=== PATIENT | female | born 1940 | race Hispanic/Latino ===

== ENCOUNTER → 2017-09-09 | Outpatient (CLI) | payer MEDICARE | END | disposition home or self-care (01) | LOC: RAH 09:08 | PROVIDERS: ATTEND Otolaryngology Plastic Surgery within the Head & Neck | DX: K21.9 Gastro-esophageal reflux disease without esophagitis (principal) | CPT/HCPCS: 74220 ==

== ENCOUNTER 2018-12-29 08:00 | Day surgery (SDC) | payer MEDICARE ==
[~2018-12-29] VITALS: Ht 154.9 cm; Wt 65.3 kg
[~2018-12-29 08:00] MED LIST: ANAS1TAB7 PO; ASPI-555 PO; CETI10CA5 PO; DONE10TA43 PO; LEVO25TA9 PO; LISI40TA4 PO; METF-444 PO; OMEP40CA37 PO; SODIUM CHLORIDE 0.9% 1000ML 1,000 ML IV ONE
[2018-12-29] MEDS ORDERED: TOLT2TAB PO (09:02)
[2018-12-29] MEDS ORDERED: BRIN10DR OU (09:02)
[2018-12-29] MEDS ORDERED: SERT100T12 PO (09:02)
[2018-12-29] MEDS ORDERED: MEMA10TA20 PO (09:02)
[2018-12-29] MEDS ORDERED: METO-391 PO (09:02)
[2018-12-29] MEDS ORDERED: COMB5OS OU (09:02)
[2018-12-29] MEDS ORDERED: SIMV20TA6 PO (09:02)
[2018-12-29 09:04] VITALS: BP 133/55
[2018-12-29 09:49] VITALS: BP 117/75
[2018-12-29 09:54] VITALS: BP 122/85
[2018-12-29 09:59] VITALS: BP 147/60
[2018-12-29 10:04] VITALS: BP 141/68
[2018-12-29 10:10] VITALS: BP 152/58
== END 2018-12-29 10:20 | disposition home or self-care (01) ==
LOC: DAH 08:00 → ENDO 08:00
PROVIDERS: ATTEND Internal Medicine
DX: K29.50 Unspecified chronic gastritis without bleeding (principal); K21.9 Gastro-esophageal reflux disease without esophagitis; I10 Essential (primary) hypertension; E78.5 Hyperlipidemia, unspecified; F41.9 Anxiety disorder, unspecified; F32.9 Major depressive disorder, single episode, unspecified; E03.9 Hypothyroidism, unspecified; Z79.82 Long term (current) use of aspirin; Z79.899 Other long term (current) drug therapy; Z79.84 Long term (current) use of oral hypoglycemic drugs; Z88.8 Allergy status to other drugs, medicaments and biological substances; Z85.3 Personal history of malignant neoplasm of breast; Z90.710 Acquired absence of both cervix and uterus; Z98.49 Cataract extraction status, unspecified eye; Z87.891 Personal history of nicotine dependence; Z83.3 Family history of diabetes mellitus; Z82.49 Family history of ischemic heart disease and other diseases of the circulatory system; Z82.3 Family history of stroke
CPT/HCPCS: 44361; 82948 ×2; 88305; 93005; A4606; J7030

== ENCOUNTER → 2022-08-12 | Outpatient (CLI) | payer MEDICARE ==
[~2022-08-12] MED LIST changes: -ASPI-555 PO; +ASPI-556 PO; +BRIN10DR OU; +COMB5OS OU; -LEVO25TA9 PO; -LISI40TA4 PO; +LISI40TA9 PO; +MEMA10TA55 PO; +METO-391 PO; +OMEP40CA21 PO; -OMEP40CA37 PO; +SERT-440 PO; +SIMV-43 PO; -SODIUM CHLORIDE 0.9% 1000ML 1,000 ML IV ONE; +TOLT2TAB20 PO
== END | disposition home or self-care (01) ==
LOC: RAH 10:41
PROVIDERS: ATTEND Internal Medicine Gastroenterology
DX: R11.0 Nausea (principal)
CPT/HCPCS: 78264; A9541